=== PATIENT | female | born 1990 | race Two or more races ===

== ENCOUNTER 2018-05-13 13:40 | Emergency (ER) | payer MEDICAID ==
[~2018-05-13] VITALS: Ht 167.6 cm; Wt 131.4 kg
[~2018-05-13 13:40] MED LIST: ALBU2.5V NPPB; ALBUTEROL MDI; AZIT250T89 PO; CEFD300C37 PO; FLUT1DIS3 INH; NEBU1KIT3
[2018-05-13 14:15] VITALS: BP 144/62
[2018-05-13 15:20] LABS: BASOPHILS # (AUTO) 0.07 x10^3/uL (0-0.1); BASOPHILS % (AUTO) 1 % (0-1); EOSINOPHILS # (AUTO) 0.22 x10^3/uL (0-0.4); EOSINOPHILS % (AUTO) 2 % (1-7); LYMPHOCYTES # (AUTO) 3.74 x10^3/uL (1-3.4); LYMPHOCYTES % (AUTO) 37 % (22-44); MD NO; MEAN CORPUSCULAR HEMOGLOBIN 31.2 pg (27.0-34.8); MEAN CORPUSCULAR HGB CONC 34.2 g/dL (32.4-35.8); MEAN CORPUSCULAR VOLUME 91.1 fL (80-100); MEAN PLATELET VOLUME 8.7 fL (7.4-10.4); MONOCYTES # (AUTO) 0.98 x10^3/uL (0.2-0.8); MONOCYTES % (AUTO) 10 % (2-9); NEUTROPHILS # (AUTO) 5.07 x10^3/uL (1.8-6.8); NEUTROPHILS % (AUTO) 50 % (42-75); PLATELET COUNT 332 x10^3/uL (130-400); RED BLOOD COUNT 4.41 x10^6/uL (3.82-5.3); RED CELL DISTRIBUTION WIDTH 12.6 % (9.6-15.2)
[2018-05-13 15:31] LABS: ALBUMIN 3.7 g/dL (3.4-5.0); ANION GAP 5 mmol/L (5-15); CHLORIDE 107 mmol/L (98-107)
--- NOTE | 2018-05-13 15:36 | NUR ---
PT TO ROOM FROM LOBBY
[2018-05-13 15:37] LABS: ALANINE AMINOTRANSFERASE 56 U/L (12-78); ALKALINE PHOSPHATASE 53 U/L (45-117); BILIRUBIN,TOTAL 0.2 mg/dL (0.2-1.0); CREATININE 0.63 mg/dL (0.55-1.02); TOTAL PROTEIN 7.8 g/dL (6.4-8.2)
--- NOTE | 2018-05-13 15:56 | NUR ---
LATE ENTRY FOR [age] Y/O FEMALE PRESENTS TO ED WITH C/O LOWER LEFT QUADRANT PAIN. PT STATES "THEY TOLD ME IT'S A FIBROID. HE'S GOING TO GIVE ME A NAME OF A DR." NO ACUTE DISTRESS NOTED. NO NEEDS REQUESTED AT THIS TIME.
[2018-05-13 15:57] LABS: MICROSCOPIC AUTO
[2018-05-13 16:01] LABS: CULTURE INDICATED? YES
--- NOTE | 2018-05-13 16:01 | NUR ---
Patient/Caregiver given discharge instructions and they have confirmed that they understand the instructions. Patient ambulatory with steady gait. PT LEFT WITH ALL PERSONAL BELONGINGS.
== END 2018-05-13 16:03 | disposition home or self-care (01) ==
LOC: MERGE 15:48 → ED 15:48
DX: R10.32 Left lower quadrant pain (principal); D25.9 Leiomyoma of uterus, unspecified
CPT/HCPCS: 36415; 76830; 80053; 81001; 84703; 85025; 87086; 99284

== ENCOUNTER 2018-07-16 10:40 | Observation (INO) | payer MEDICAID ==
[~2018-07-16] VITALS: Ht 167.6 cm; Wt 128.6 kg
[~2018-07-16 10:40] MED LIST changes: +ACET-1600 PO; +ALBU18HF INH; +FLUT1AER INH
[2018-07-16] MEDS ORDERED: LACTATED RINGERS 1,000 ML IV SCH (11:01)
[2018-07-16 11:33] VITALS: BP 118/77
[2018-07-16 11:45] LABS: HCG UR SG 1.017 (1.003-1.030)
[2018-07-16] MEDS ORDERED: FAMOTIDINE 20 MG/2 ML IVPush ONE (12:00)
[2018-07-16] MEDS ORDERED: OxyconTIN ER 10 MG TAB.ER PO ONE (12:00)
[2018-07-16] MEDS ORDERED: ACETAMINOPHEN 500 MG TABLET PO ONE (12:00)
[2018-07-16] MEDS ORDERED: GABAPENTIN 300 MG CAPSULE PO ONE (12:00)
[2018-07-16] MEDS ORDERED: SCOPOLAMINE PATCH, 1.5MG PATCH.TD72 TD ONE (12:00)
[2018-07-16] MEDS ORDERED: MIDAZOLAM 1 MG/ML, 2ML ONE (12:05)
[2018-07-16] MEDS ORDERED: FENTANYL PF 250 MCG/5ML ONE (12:06)
[2018-07-16] MEDS ORDERED: VASOPRESSIN 20 UNIT/ML, 1ML ONE (12:27)
[2018-07-16] MEDS ORDERED: ROCURONIUM 10 MG/ML,10ML ONE (12:58)
[2018-07-16] MEDS ORDERED: PROPOFOL 10 MG/ML, 20ML ONE (12:58)
[2018-07-16] MEDS ORDERED: DEXAMETHASONE 4 MG/ML, 1ML ONE (12:58)
[2018-07-16] MEDS ORDERED: ONDANSETRON 2MG/ML, 2ML ONE (12:58)
[2018-07-16] MEDS ORDERED: CEFAZOLIN 1,000 MG ONE (12:58)
[2018-07-16] MEDS ORDERED: SUGAMMADEX 200 MG/2 ML IVPush ONE (14:37)
[2018-07-16] MEDS ORDERED: PROMETHAZINE 25 MG/ML, 1ML IV PRN (15:00)
[2018-07-16] MEDS ORDERED: OXYcodone 5 MG/5 ML ORAL.SOL UDC PO PRN (15:00)
[2018-07-16] MEDS ORDERED: HYDROmorphone 2 MG/ML, 1ML IVPush PRN (15:00)
[2018-07-16] MEDS ORDERED: DIAZEPAM 5 MG/ML, 2ML IVPush PRN (15:00)
[2018-07-16] MEDS ORDERED: ALBUTEROL SULFATE 2.5 MG/3 ML NPPB PRN (15:00)
[2018-07-16] MEDS ORDERED: FENTANYL PF 100 MCG/2ML IV PRN (15:00)
[2018-07-16] MEDS ORDERED: MEPERIDINE/PF 25MG/0.5ML IVPush PRN (15:00)
[2018-07-16] MEDS ORDERED: LABETALOL 5MG/ML, 20ML IV PRN (15:00)
[2018-07-16] MEDS ORDERED: hydrALAzine 20 MG/ML, 1ML IV PRN (15:00)
[2018-07-16] MEDS ORDERED: MEPERIDINE/PF 50 MG/ML ONE (15:11)
[2018-07-16] MEDS: OXYcodone 5 MG/5 ML ORAL.SOL UDC PO PRN ×2 (17:59→23:25)
[2018-07-16 18:26] VITALS: BP 122/76
[2018-07-16] MEDS: IBUPROFEN 600 MG TABLET PO SCH (20:41)
[2018-07-16] MEDS: ONDANSETRON 2MG/ML, 2ML IV PRN (21:43)
[2018-07-16 23:30] VITALS: BP 104/66
[2018-07-17 03:50] VITALS: BP 108/66
[2018-07-17] MEDS: OXYcodone 5 MG/5 ML ORAL.SOL UDC PO PRN ×5 (04:01→20:36)
[2018-07-17] MEDS: IBUPROFEN 600 MG TABLET PO SCH ×4 (06:37→20:36)
[2018-07-17 07:41] VITALS: BP 100/62
[2018-07-17 13:20] VITALS: BP 106/63
[2018-07-17] MEDS ORDERED: IBUP200T49 PO ×2 (14:31→15:20)
[2018-07-17] MEDS ORDERED: OXYC-302 PO ×2 (14:33→15:21)
[2018-07-17 15:14] VITALS: BP 108/64
[2018-07-17] MEDS ORDERED: ONDANSETRON ODT 4 MG ONE (15:27)
[2018-07-17] MEDS ORDERED: ONDANSETRON ODT 4 MG PO ONE (16:00)
[2018-07-17 17:28] LABS: BASOPHILS # (AUTO) 0.04 x10^3/uL (0-0.1); BASOPHILS % (AUTO) 0 % (0-1); EOSINOPHILS # (AUTO) 0.04 x10^3/uL (0-0.4); EOSINOPHILS % (AUTO) 1 % (1-7); LYMPHOCYTES # (AUTO) 1.46 x10^3/uL (1-3.4); LYMPHOCYTES % (AUTO) 18 % (22-44); MD NO; MEAN CORPUSCULAR HEMOGLOBIN 31.4 pg (27.0-34.8); MEAN CORPUSCULAR HGB CONC 34.8 g/dL (32.4-35.8); MEAN CORPUSCULAR VOLUME 90.1 fL (80-100); MEAN PLATELET VOLUME 8.2 fL (7.4-10.4); MONOCYTES # (AUTO) 0.64 x10^3/uL (0.2-0.8); MONOCYTES % (AUTO) 8 % (2-9); NEUTROPHILS # (AUTO) 5.99 x10^3/uL (1.8-6.8); NEUTROPHILS % (AUTO) 73 % (42-75); PLATELET COUNT 259 x10^3/uL (130-400); RED BLOOD COUNT 3.51 x10^6/uL (3.82-5.3); RED CELL DISTRIBUTION WIDTH 13.1 % (9.6-15.2)
[2018-07-17] MEDS: ONDANSETRON 2MG/ML, 2ML IV PRN (17:33)
[2018-07-17] MEDS: LACTATED RINGERS 1,000 ML IV SCH (18:07)
[2018-07-17] MEDS ORDERED: OMNIPAQUE 350 MG/ML, 100ML BOTTLE ONE (18:07)
[2018-07-17] MEDS: morphine SULFATE 10 MG/ML, 1ML IV PRN ×2 (18:44→19:38)
[2018-07-17 19:40] VITALS: BP 121/72
[2018-07-18 01:21] VITALS: BP 105/53
[2018-07-18] MEDS: LACTATED RINGERS 1,000 ML IV SCH ×3 (01:28→18:34)
[2018-07-18] MEDS: OXYcodone 5 MG/5 ML ORAL.SOL UDC PO PRN (02:50)
[2018-07-18] MEDS: IBUPROFEN 600 MG TABLET PO SCH ×4 (05:42→20:08)
[2018-07-18 06:40] VITALS: BP 129/69
[2018-07-18 12:23] VITALS: BP 109/47
[2018-07-18 19:26] VITALS: BP 103/58
[2018-07-19 00:34] VITALS: BP 108/63
[2018-07-19] MEDS: LACTATED RINGERS 1,000 ML IV SCH ×2 (01:58→11:00)
[2018-07-19] MEDS: IBUPROFEN 600 MG TABLET PO SCH ×2 (06:08→11:16)
[2018-07-19 07:15] VITALS: BP 125/87
[2018-07-19 13:25] VITALS: BP 130/76
== END 2018-07-19 14:23 | disposition home or self-care (01) ==
LOC: OUT 10:40 → 4NOR 16:35 → OUT 16:43 → DCLOUNGE 07-19 14:05
PROVIDERS: ADMIT Student in an Organized Health Care Education/Training Program; ATTEND Student in an Organized Health Care Education/Training Program
DX: D25.9 Leiomyoma of uterus, unspecified (principal); D28.2 Benign neoplasm of uterine tubes and ligaments; J45.909 Unspecified asthma, uncomplicated; N80.9 Endometriosis, unspecified; Z80.3 Family history of malignant neoplasm of breast; Z80.41 Family history of malignant neoplasm of ovary; Z82.49 Family history of ischemic heart disease and other diseases of the circulatory system; Z83.3 Family history of diabetes mellitus
CPT/HCPCS: 36415; 58140; 74177; 81025; 85025; 88305; 96374; 96375; 96376; G0378; J0690; J1100; J2175; J2250; J2270; J2405; J2704; J3010; J3490; J7120; Q0162; Q9967

== ENCOUNTER 2018-08-13 13:03 | Emergency (ER) | payer MEDICAID ==
[~2018-08-13] VITALS: Ht 167.6 cm; Wt 130.6 kg
[~2018-08-13 13:03] MED LIST changes: +IBUP200T49 PO; +OXYC-302 PO
[2018-08-13 15:58] VITALS: BP_DIAS 84
[2018-08-13 18:57] LABS: BASOPHILS # (AUTO) 0.07 x10^3/uL (0-0.1); BASOPHILS % (AUTO) 1 % (0-1); EOSINOPHILS # (AUTO) 0.43 x10^3/uL (0-0.4); EOSINOPHILS % (AUTO) 5 % (1-7); LYMPHOCYTES # (AUTO) 3.31 x10^3/uL (1-3.4); LYMPHOCYTES % (AUTO) 40 % (22-44); MD NO; MEAN CORPUSCULAR HEMOGLOBIN 30.5 pg (27.0-34.8); MEAN CORPUSCULAR HGB CONC 34.1 g/dL (32.4-35.8); MEAN CORPUSCULAR VOLUME 89.4 fL (80-100); MEAN PLATELET VOLUME 8.9 fL (7.4-10.4); MONOCYTES # (AUTO) 0.69 x10^3/uL (0.2-0.8); MONOCYTES % (AUTO) 8 % (2-9); NEUTROPHILS # (AUTO) 3.71 x10^3/uL (1.8-6.8); NEUTROPHILS % (AUTO) 45 % (42-75); PLATELET COUNT 311 x10^3/uL (130-400); RED BLOOD COUNT 4.48 x10^6/uL (3.82-5.3); RED CELL DISTRIBUTION WIDTH 13.1 % (9.6-15.2)
--- NOTE | 2018-08-13 19:02 | NUR ---
PT NOTED TO HAVE SMALL AMOUNT OF SEROSANGUINEOUS FLUID FROM ABDOMINAL SURGICAL SITE WITH AN ODOR THAT STARTED TODAY
[2018-08-13 19:06] LABS: ALBUMIN 3.9 g/dL (3.4-5.0); ANION GAP 8 mmol/L (5-15); CALCIUM 8.8 mg/dL (8.5-10.1); CHLORIDE 108 mmol/L (98-107)
[2018-08-13 19:12] LABS: ALANINE AMINOTRANSFERASE 50 U/L (12-78); ALKALINE PHOSPHATASE 53 U/L (45-117); BILIRUBIN,TOTAL 0.1 mg/dL (0.2-1.0); CREATININE 0.75 mg/dL (0.55-1.02)
[2018-08-13 19:30] VITALS: BP_SYST 142
== END 2018-08-13 20:02 | disposition home or self-care (01) ==
LOC: ED 19:45
DX: L76.34 Postprocedural seroma of skin and subcutaneous tissue following other procedure (principal); Y83.8 Other surgical procedures as the cause of abnormal reaction of the patient, or of later complication, without mention of misadventure at the time of the procedure; Y76.3 Surgical instruments, materials and obstetric and gynecological devices (including sutures) associated with adverse incidents; J45.909 Unspecified asthma, uncomplicated
CPT/HCPCS: 36415; 80053; 83690; 84703; 85025; 99283

== ENCOUNTER 2018-09-27 00:09 | Emergency (ER) | payer MEDICAID ==
[~2018-09-27] VITALS: Ht 167.6 cm; Wt 131.7 kg
--- NOTE | 2018-09-27 00:25 | NUR ---
PT STATED SHE NOTICED WHEEZING 1800, USED INHALER, THEN BEGAN TO FEEL NAUSEATED AND EVERY TIME SHE LAYED DOWN SHE FELT HEAVINESS AND NAUSEATED. MONITORS APPLIED, SIDEAILS UP X2, CALL LIGHT WITHIN REACH
[2018-09-27] MEDS ORDERED: ALBUTEROL/IPRATROPIUM 2.5MG/0.5MG, 3 ML NPPB ONE (00:30)
[2018-09-27] MEDS ORDERED: ONDANSETRON ODT 4 MG PO ONE (00:30)
[2018-09-27] MEDS ORDERED: ONDANSETRON ODT 4 MG ONE (00:38)
--- NOTE | 2018-09-27 00:51 | NUR ---
LUNCH RN: RESPIRATORY AT BEDSIDE.
[2018-09-27 02:02] VITALS: BP 132/55
--- NOTE | 2018-09-27 02:03 | NUR ---
PT RESTING CALMLY, MONITORS IN PLACE, CALL LIGHT WITHIN REACH. CHART UP FOR RECHECK
--- NOTE | 2018-09-27 02:41 | NUR ---
pt given dc instructions and scripts. pt educated regarding dc medications. pt's aox4. resps even and unlabored. pt amb to dc with steady gait. no acute distress at dc.
== END 2018-09-27 02:42 | disposition home or self-care (01) ==
LOC: ED 00:52
DX: J45.41 Moderate persistent asthma with (acute) exacerbation (principal)
CPT/HCPCS: 71046; 93005; 94640; 99283; J7512; J7620; Q0162

== ENCOUNTER 2018-11-22 12:33 | Emergency (ER) | payer MEDICAID ==
[~2018-11-22] VITALS: Ht 167.6 cm; Wt 117.1 kg
[2018-11-22 12:37] VITALS: BP 147/87
== END 2018-11-22 14:32 | disposition home or self-care (01) ==
LOC: ED 12:43
DX: J45.21 Mild intermittent asthma with (acute) exacerbation (principal); J45.41 Moderate persistent asthma with (acute) exacerbation
CPT/HCPCS: 71046; 94640; 99283; J7512; J7620

== ENCOUNTER 2021-01-05 17:51 | Emergency (ER) | payer MEDICAID ==
[~2021-01-05] VITALS: Ht 167.6 cm; Wt 120.4 kg
[~2021-01-05 17:51] MED LIST changes: -OXYC-302 PO; +OXYC1TAB12 PO
[2021-01-05 18:52] LABS: BASOPHILS % (AUTO) 1 % (0-1); EOSINOPHILS % (AUTO) 5 % (1-7); LYMPHOCYTES % (AUTO) 17 % (22-44); MEAN CORPUSCULAR HEMOGLOBIN 30.4 pg (27.0-34.8); MEAN CORPUSCULAR HGB CONC 33.7 g/dL (32.4-35.8); MEAN PLATELET VOLUME 9.1 fL (7.4-10.4); MONOCYTES % (AUTO) 7 % (2-9); NEUTROPHILS % (AUTO) 71 % (42-75); PLATELET COUNT 290 x10^3/uL (130-400); RED BLOOD COUNT 4.72 x10^6/uL (3.82-5.3); RED CELL DISTRIBUTION WIDTH 12.9 % (9.6-15.2)
[2021-01-05 19:05] LABS: ALBUMIN 3.8 g/dL (3.4-5.0); ANION GAP 4 mmol/L (5-15); CHLORIDE 106 mmol/L (98-107); CREATININE 0.74 mg/dL (0.55-1.02)
--- NOTE | 2021-01-05 19:58 | NUR ---
Patient to room from [facility]; first contact with patient. Patient presents to ER c/o diff breathing, intermittent cough, congestion, and chest tightness since Sunday night. Patient's son was recently sick with similar symptoms. Patient has a hx of asthma and is out of her meds x a couple months. She has an appt with a new primary soon. Patient is COVID vaccinated x2; modern[employer]. Patient is in NAD. Respirations even and unlabored but is clearly congested.
[2021-01-05] MEDS ORDERED: DEXAMETHASONE 4 MG TABLET PO ONE (20:00)
[2021-01-05] MEDS ORDERED: IBUPROFEN 800 MG TABLET PO ONE (20:00)
[2021-01-05] MEDS ORDERED: DEXAMETHASONE 4 MG TABLET ONE (20:12)
[2021-01-05] MEDS ORDERED: IBUPROFEN 800 MG TABLET ONE (20:12)
[2021-01-05] MEDS ORDERED: ALBUTEROL/IPRATROPIUM 2.5MG/0.5MG, 3 ML ONE (20:13)
[2021-01-05] MEDS ORDERED: ALBUTEROL/IPRATROPIUM 2.5MG/0.5MG, 3 ML NPPB ONE (20:30)
[2021-01-05 20:50] VITALS: BP 129/69
== END 2021-01-05 19:50 ==
LOC: ED 19:49
DX: J45.901 Unspecified asthma with (acute) exacerbation (principal); Z20.822 Contact with and (suspected) exposure to COVID-19; J06.9 Acute upper respiratory infection, unspecified; R06.00 Dyspnea, unspecified; R00.0 Tachycardia, unspecified
CPT/HCPCS: 36415; 71045; 80048; 82040; 85025; 93005; 94640; 99285; U0003; U0005